=== PATIENT | male | born 1990 | race African-American/Black ===

== ENCOUNTER 2016-12-25 15:28 | Emergency (ER) | payer SELFPAY ==
--- NOTE | 2016-12-25 15:46 | ED ---
Extremity Problem HPI - General Stated complaint: Hand Pain/ Injury Time Seen by Provider: 12/25/16 15:30 Source: RN notes reviewed - History of Present Illness Initial comments: 26 yo male presents to the Er with cc of right hand pain. Patient states he was wrestling and he hurt his right hand. Patient states pain over the outside of the hand. Patient states this happened 2 days ago. Due to the fact they continued to hurt he thought that he should be seen. Patient states pain is moderate worsening movement. Patient denies any other injury from the incident. Patient denies any recent fever, chills, shortness of breath, chest pain, back pain, abdominal pain, nausea vomiting, numbness or tingling, dysuria or hematuria, constipation or diarrhea, headaches or visual changes, or any other current symptoms. - Related Data Home Medications Medication Instructions Recorded Confirmed No Known Home Medications [No 12/25/16 12/25/16 Known Home Medications] Allergies Allergy/AdvReac Type Severity Reaction Status Date / Time No Known Allergies Allergy Verified 12/25/16 15:44 Review of Systems ROS Statement: Those systems with pertinent positive or pertinent negative responses have been documented in the HPI. ROS Other: All systems not noted in ROS Statement are negative. Past Medical History Past Medical History: Asthma History of Any Multi-Drug Resistant Organisms: None Reported Past Surgical History: Adenoidectomy, Ear Surgery, Hernia Repair Additional Past Surgical History / Comment(s): ear tubes Past Psychological History: No Psychological Hx Reported Smoking Status: Current every day smoker Past Alcohol Use History: Occasional Past Drug Use History: Marijuana General Exam - General Exam Comments Initial Comments: General: The patient is awake and alert, in no distress, and does not appear acutely ill. Neck: The neck is supple, there is no tenderness. Cardiovascular: There is a regular rate and rhythm. No murmur, rub or gallop is appreciated. Respiratory: Lungs are clear to auscultation, respirations are non-labored, breath sounds are equal. No wheezes, stridor, rales, or rhonchi. Musculoskeletal: Sensation intact with 2+ pulses. Extremity. Full range of motion of right wrist. Patient's friend was on the right hand with some pain along the fourth and fifth metatarsal carpals. No tenderness at the anatomical snuffbox. Full range of motion of all digits. Neurological: CN II-XII intact, There are no obvious motor or sensory deficits. Coordination appears grossly intact. Speech is normal. Skin: Skin is warm and dry and no rashes or lesions are noted. Psychiatric: Normal mood and affect. Course Vital Signs 12/25/16 15:34 Temperature 98.4 F Pulse Rate 78 Respiratory 20 Rate Blood Pressure 128/68 O2 Sat by Pulse 97 Oximetry Medical Decision Making - Medical Decision Making 20 60 male presents for right hand pain. This time he appears to have a sprain. We discussed ice Motrin Tylenol. We discussed return parameters and follow-up. Patient's family's questions. They state Cirilo and agree with the plan. They will be discharged home. - Radiology Data Radiology results: report reviewed, image reviewed Disposition Clinical Impression: Strain of right hand Disposition: HOME SELF-CARE Condition: Stable Instructions: Hand Sprain (ED) Additional Instructions: Please use medication as discussed. Please follow up with family doctor if symptoms have not improved over the next two days. Please return to the emergency room if your symptoms increase or worsen or for any other concerns. Referrals: Edith Barakat MD [Primary Care Provider] - 1-2 days Time of Disposition: 16:22
[2016-12-25 15:47] VITALS: BP 128/68; PULSE 78; RESP 20; TEMP 98.4
--- NOTE | 2016-12-25 16:20 | XR ---
Right hand HISTORY: Right hand pain 3 views of the right hand No comparisons Bone mineralization, joint spaces and alignment are maintained IMPRESSION: No fracture or dislocation.
== END 2016-12-25 16:26 | disposition home or self-care (01) ==
LOC: EC 15:28
DX: S66.911A Strain of unspecified muscle, fascia and tendon at wrist and hand level, right hand, initial encounter (principal); F17.200 Nicotine dependence, unspecified, uncomplicated; X58.XXXA Exposure to other specified factors, initial encounter; Y93.72 Activity, wrestling
CPT/HCPCS: 99283

== ENCOUNTER → 2019-01-16 | Outpatient (CLI) | payer OTHER ==
--- NOTE | 2019-01-16 11:59 | MR ---
EXAMINATION TYPE: MR brain wo/w con DATE OF EXAM: 01/16/2019 COMPARISON: None HISTORY: Left side hearing loss TECHNIQUE: Multiplanar, multisequence images of the brain and brainstem is performed without and with IV contras t, utilizing 6.5 mL intravenous Gadavist . FINDINGS: Diffusion weighted images demonstrate no evidence of a recent infarct or other diffusion ab normality. There is no extra-axial fluid collection. Punctate focus of increased signal on inversion recovery and T2-weighted sequences in the right frontal white matter on axial image 15 is of questio nable clinical significance The ventricular system and cisternal spaces are normal in size and appea daryl. The brain volume is age appropriate. Midline structures demonstrate normal morphology. The craniocervical junction appears within normal limits. Post contrast images demonstrate no abnormal enhancement. The dural venous sinuses appear pa tent. The visualized sinuses are clear and the globes are intact. IMPRESSION: Nonspecific white matter signal change questionable clinical significance. No other signi ficant abnormality is evident.
== END | disposition home or self-care (01) ==
LOC: RADMRIMAIN 09:59
PROVIDERS: ATTEND Family Medicine
DX: R51 Headache (principal)
CPT/HCPCS: 70553; A9585

== ENCOUNTER → 2019-01-17 | Outpatient (CLI) | payer OTHER ==
--- NOTE | 2019-01-17 13:21 | EEG ---
ELECTROENCEPHALOGRAM REPORT PROCEDURE DATE: 01/17/2019 ELECTROENCEPHALOGRAM (EEG) REPORT: TECHNIQUE: A routine 18 channel EEG was performed with video using the 10-20 international placement system. HISTORY: Syncopal episodes, June 06 and July 08. OTHER MEDICAL HISTORY: Other medical history includes headaches. CURRENT MEDICATIONS: None. STUDY DURATION: 26 minutes. FINDINGS: BACKGROUND: The background activity consisted of 9-10 hertz rhythmic waveforms symmetrically distributed over both posterior quadrants. ACTIVATION: Hyperventilation: Not performed. Photic stimulation: Symmetric driving seen. Sleep: Stages I and II sleep noted. ABNORMALITIES: None. Please note that 1 channel of this EEG was dedicated to EKG. It demonstrated a sinus rhythm. IMPRESSION: Normal EEG. No epileptiform activity was present. No seizures were recorded. MMODL / IJN: [id number] /
== END ==
LOC: NEUROMAIN 10:12
PROVIDERS: ATTEND Family Medicine
DX: R55 Syncope and collapse (principal)
CPT/HCPCS: 93270; 95819

== ENCOUNTER 2019-09-22 18:54 | Emergency (ER) | payer OTHER ==
[2019-09-22 19:01] VITALS: TEMP 98.1
--- NOTE | 2019-09-22 19:23 | ED ---
Chest Pain HPI - General Chief Complaint: Chest Pain Stated Complaint: chest pain Time Seen by Provider: 09/22/19 19:08 Source: patient, RN notes reviewed, old records reviewed Mode of arrival: ambulatory Limitations: no limitations - History of Present Illness Initial Comments: This is a 28-year-old male to ER today he presents today for evaluation of chest pain left-sided chest pain sharp stabbing pains related to his back into his arm. He does have history of similar complaint but of lesser days been more frequent hanging up from sleep and when he would describe as worse than normal. No modifying factors for pain complainingof shortness of breath with activity and some sweating at night. Patient does smoke but no other medical history, patient has no high blood pressure high cholesterol or diabetes, no strong family history of heart disease MD Complaint: chest pain -: days(s) (3) Onset: during rest, awoke with symptoms Pain Location: left chest Pain Radiation: LUE Severity: moderate Severity scale (1-10): 4 Quality: sharp Consistency: intermittent Improves With: nothing Worsens With: nothing Anginal Symptoms: diaphoresis, dyspnea Other Symptoms: cough Treatments Prior to Arrival: none - Related Data Home Medications Medication Instructions Recorded Confirmed Magnesium 200 mg PO DAILY 09/22/19 09/22/19 Allergies Allergy/AdvReac Type Severity Reaction Status Date / Time No Known Allergies Allergy Verified 09/22/19 20:05 Review of Systems ROS Statement: Those systems with pertinent positive or pertinent negative responses have been documented in the HPI. ROS Other: All systems not noted in ROS Statement are negative. EKG Findings - EKG Comments: EKG Findings:: EKG shows sinus rhythm rate of 92, NH 170, QRS 04, QTc 415 Past Medical History Past Medical History: Asthma, Syncope History of Any Multi-Drug Resistant Organisms: None Reported Past Surgical History: Adenoidectomy, Ear Surgery, Hernia Repair Additional Past Surgical History / Comment(s): ear tubes Past Anesthesia/Blood Transfusion Reactions: No Reported Reaction Past Psychological History: No Psychological Hx Reported Smoking Status: Current every day smoker Past Alcohol Use History: Occasional Past Drug Use History: Marijuana - Past Family History Mother Family Medical History: No Reported History General Exam Limitations: no limitations General appearance: alert, in no apparent distress Head exam: Present: atraumatic, normocephalic, normal inspection Eye exam: Present: normal appearance, PERRL, EOMI. Absent: scleral icterus, conjunctival injection, periorbital swelling ENT exam: Present: normal exam, mucous membranes moist Neck exam: Present: normal inspection. Absent: tenderness, meningismus, lymphadenopathy Respiratory exam: Present: normal lung sounds bilaterally. Absent: respiratory distress, wheezes, rales, rhonchi, stridor Cardiovascular Exam: Present: regular rate, normal rhythm, normal heart sounds. Absent: systolic murmur, diastolic murmur, rubs, gallop, clicks GI/Abdominal exam: Present: soft, normal bowel sounds. Absent: distended, tenderness, guarding, rebound, rigid Extremities exam: Present: normal inspection, full ROM, normal capillary refill. Absent: tenderness, pedal edema, joint swelling, calf tenderness Back exam: Present: normal inspection Neurological exam: Present: alert, oriented X3, CN II-XII intact Psychiatric exam: Present: normal affect, normal mood Skin exam: Present: warm, dry, intact, normal color. Absent: rash Course Vital Signs 09/22/19 09/22/19 09/22/19 18:56 19:01 20:00 Temperature 98.1 F Pulse Rate 88 73 Pulse Rate [ 86 Hand Bander ] Respiratory 19 18 18 Rate Blood Pressure 119/79 108/74 O2 Sat by Pulse 100 99 Oximetry 09/22/19 09/22/19 09/22/19 20:47 22:00 23:00 Temperature Pulse Rate 80 57 L 61 Pulse Rate [ Hand Bander ] Respiratory 18 17 17 Rate Blood Pressure 124/77 118/70 111/68 O2 Sat by Pulse 99 100 100 Oximetry - Reevaluation(s) Reevaluation #1: 09/22/19 19:22 Medical record review with history of syncope Reevaluation #2: 09/23/19 00:02 Patient is troponin checked 2 first one nonsignificantly clinically elevated, second one lower the first spoke with Dr. Camara who agrees follow-up in the office spoke with patient was also be a without patient follow-up currently without chest pain or any other new complaints Chest Pain MDM - MDM Review male here with not severe chest pain chest pain at night waking her from sleep relays down. Patient is a symptomatic to ER stay the patient deny t roponin negative 2 chest x-ray otherwise negative the patient can be discharged home Disposition Clinical Impression: Atypical chest pain, Chest pain Disposition: HOME SELF-CARE Condition: Good Instructions (If sedation given, give patient instructions): Chest Pain (ED) Is patient prescribed a controlled substance at d/c from ED?: No Referrals: Edith Barakat MD [Primary Care Provider] - 1-2 days
[2019-09-22 19:53] LABS: Basophils # (A) 0.2 k/uL (0-0.2); Basophils % (A) 3 %; Eosinophils # (A) 0.1 k/uL (0-0.7); Eosinophils % (A) 2 %; HCT 43.1 % (39.0-53.0); HGB 14.9 gm/dL (13.0-17.5); Lymphocytes # (A) 0.5 k/uL (1.0-4.8); Lymphocytes % (A) 8 %; MCH 32.8 pg (25.0-35.0); MCHC 34.5 g/dL (31.0-37.0); MCV 94.8 fL (80.0-100.0); Mean Platelet Volume 10.1; Monocytes # (A) 0.5 k/uL (0-1.0); Monocytes % (A) 8 %; Neutrophils % (A) 78 %; Platelet Count 141 k/uL (150-450); RBC 4.54 m/uL (4.30-5.90); RDW 12.6 % (11.5-15.5); WBC 6.4 k/uL (3.8-10.6)
--- NOTE | 2019-09-22 19:59 | XR ---
EXAMINATION TYPE: XR chest 2V DATE OF EXAM: 09/22/2019 COMPARISON: NONE HISTORY: Chest pain TECHNIQUE: FINDINGS: Heart and mediastinum are normal. Lungs are clear. Diaphragm is normal. Bony thorax appears normal. IMPRESSION: Normal chest.
[2019-09-22 20:03] LABS: ALT 15 U/L (4-49); AST 28 U/L (17-59); African American GFR (CKD) >90 (>60 ml/min/1.73 sqM); Albumin 4.8 g/dL (3.5-5.0); Alkaline Phosphatase 60 U/L (38-126); Anion Gap 7 mmol/L; Blood Urea Nitrogen 9 mg/dL (9-20); Calcium 9.9 mg/dL (8.4-10.2); Carbon Dioxide 30 mmol/L (22-30); Chloride 103 mmol/L (98-107); Glucose 78 mg/dL (74-99); Magnesium 1.8 mg/dL (1.6-2.3); Non-African American GFR(CKD) >90 (>60 ml/min/1.73 sqM); Potassium 4.2 mmol/L (3.5-5.1); Sodium 140 mmol/L (137-145); Total Bilirubin 1.1 mg/dL (0.2-1.3); Total Protein 7.8 g/dL (6.3-8.2)
[2019-09-22 20:10] LABS: D-Dimer <0.17 mg/L FEU (<0.60); INR 1.1 (<1.2); Partial Thromboplastin Time 28.1 sec (22.0-30.0); Prothrombin Time 11.2 sec (9.0-12.0)
[2019-09-22] MEDS ORDERED: KETOROLAC 30 MG/ML 1 ML VIAL IVP STA (20:48)
[2019-09-22] MEDS ORDERED: SODIUM CHLORIDE 0.9% 1,000 ML IV ONE (20:54)
[2019-09-23 00:11] VITALS: BP 111/63; PULSE 68; RESP 16
== END 2019-09-23 00:11 | disposition home or self-care (01) ==
LOC: EC 18:54
DX: R07.89 Other chest pain (principal); R55 Syncope and collapse; F17.200 Nicotine dependence, unspecified, uncomplicated; Z79.899 Other long term (current) drug therapy
CPT/HCPCS: 36415; 93005; 85379; 83880; 80053; 83690; 83735; 84484; 85025; 85610; 85730; 71046; 99285; 96374; 96361; J1885

== ENCOUNTER → 2019-10-06 | Outpatient (CLI) | payer OTHER ==
--- NOTE | 2019-10-06 11:29 | ECHOS ---
STRESS ECHOCARDIOGRAM INDICATIONS: Chest pain. BASELINE HEART RATE: 65 BASELINE BLOOD PRESSURE: 108/58 MAXIMUM HEART RATE: 178 MAXIMUM BLOOD PRESSURE: 199/90 85% MPHR: 163 100% MPHR: 192 METS: 12.1 MAXIMUM STAGE REACHED: 4 TOTAL EXERCISE TIME: 12:00 CLINICAL INFORMATION: Patient complained of chest pain, midline. Baseline heart rate 65 beats per minute. Baseline blood pressure 108/58 mmHg. Baseline 12-lead ECG shows normal sinus rhythm with normal cardiac intervals. Patient exercised on a Kurt protocol for 12 minutes quite comfortably and achieved a peak heart rate of 178 beats per minute. Normal blood pressure response to exercise. There was no ECG evidence for ischemia. No arrhythmias were noted. Baseline 2D echo images showed normal LV size and systolic function without segmental wall motion abnormalities. At peak exercise, there was excellent augmentation of overall LV contractility without developing any wall motion abnormalities. At recovery, regional global LV systolic function remained normal. IMPRESSION: 1. No ECG or echocardiographic evidence for ischemia. 2. Excellent exercise capacity. MMODL / IJN: [id number] /
== END | disposition home or self-care (01) ==
LOC: RADNMMAIN 09:29
PROVIDERS: ATTEND Family Medicine
DX: R94.30 Abnormal result of cardiovascular function study, unspecified (principal)
CPT/HCPCS: 93351

== ENCOUNTER → 2019-10-31 | Outpatient (CLI) | payer OTHER ==
--- NOTE | 2019-10-31 10:25 | CT ---
EXAMINATION TYPE: CT chest w con DATE OF EXAM: 10/31/2019 COMPARISON: Chest x-ray 09/22/2019 HISTORY: Chest pains X 6 months-intermittent CT DLP: 170.3 mGycm Automated exposure control for dose reduction was used. CONTRAST: CT scan of the chest is performed without and with IV Contrast, patient injected with 100 mL of Isovu e 300. FINDINGS: LUNGS: The lungs are grossly clear, there is no concerning parenchymal mass or nodule identified, sma ll subpleural oval nodular density in axial image 47 measures only 4 mm, soft tissue nodule in the flaherty bpleural axial image #39 measures 4 to 5 mm with smooth margins and is noncalcified and are likely be nign in the right lower lobe. There is no pleural effusion or pneumothorax seen. The tracheobronch ial tree is patent. MEDIASTINUM: There are no greater than 1 cm hilar or mediastinal lymph nodes. No pericardial effusi on is seen. AORTA: No additional significant abnormality is seen. 3 super aortic branch vessels are present. OTHER: There is a thoracic spinal curvature as noted on plain film. IMPRESSION: Indeterminate pulmonary nodules may be entry level sales representative of granulomatous disease, felt lik matthias to be benign. Mild spinal curvature.
== END | disposition home or self-care (01) ==
LOC: RADCTMAIN 09:17
PROVIDERS: ATTEND Family Medicine
DX: R07.9 Chest pain, unspecified (principal)
CPT/HCPCS: 71260; Q9967

== ENCOUNTER 2022-08-21 04:30 | Emergency (ER) | payer OTHER ==
[2022-08-21 04:43] VITALS: BP 124/80; PULSE 79; RESP 18; TEMP 98.8
--- NOTE | 2022-08-21 05:07 | XR ---
EXAMINATION TYPE: XR chest 2V DATE OF EXAM: 08/21/2022 COMPARISON: 09/22/2019 HISTORY: Abnormal breath TECHNIQUE: 2 views FINDINGS: Heart and mediastinum are normal. Lungs are clear. Diaphragm is normal. Bony thorax appears normal. IMPRESSION: Normal chest. No change.
--- NOTE | 2022-08-21 05:15 | ED ---
URI HPI - General Chief Complaint: Upper Respiratory Infection Stated Complaint: Headache, Cough, Chest Pain Time Seen by Provider: 08/21/22 05:04 Source: patient, RN notes reviewed, old records reviewed Mode of arrival: ambulatory Limitations: no limitations - History of Present Illness Initial Comments: This is a 31-year-old male to the emergency department for evaluation no medical history comes in for cough congestion upper Estrace infection resume have influenza or coronavirus. No fevers. No chest pain. No other complaints MD Complaint: fever, cough, sore throat, rhinorrhea, nasal congestion -: days(s) (6) Severity: mild Severity scale (1-10): 4 Quality: dull Consistency: intermittent Improves With: nothing Worsens With: nothing Context: sick contacts Associated Symptoms: fever, myalgias, cough Treatments Prior to Arrival: none - Related Data Home Medications Medication Instructions Recorded Confirmed Magnesium 200 mg PO DAILY 09/22/19 09/22/19 Previous Rx's Medication Instructions Recorded Azithromycin [Zithromax] 500 mg PO DAILY #5 tab 08/21/22 Allergies Allergy/AdvReac Type Severity Reaction Status Date / Time No Known Allergies Allergy Verified 08/21/22 04:43 Review of Systems ROS Statement: Those systems with pertinent positive or pertinent negative responses have been documented in the HPI. ROS Other: All systems not noted in ROS Statement are negative. Past Medical History Past Medical History: Asthma, Syncope History of Any Multi-Drug Resistant Organisms: None Reported Past Surgical History: Adenoidectomy, Ear Surgery, Hernia Repair Additional Past Surgical History / Comment(s): ear tubes Past Anesthesia/Blood Transfusion Reactions: No Reported Reaction Past Psychological History: No Psychological Hx Reported Smoking Status: Current some day smoker Past Alcohol Use History: Occasional Past Drug Use History: Marijuana - Past Family History Mother Family Medical History: No Reported History General Exam General appearance: alert, in no apparent distress Head exam: Present: atraumatic, normocephalic, normal inspection Eye exam: Present: normal appearance, PERRL, EOMI. Absent: scleral icterus, conjunctival injection, periorbital swelling ENT exam: Present: normal exam, mucous membranes moist Neck exam: Present: normal inspection. Absent: tenderness, meningismus, lymphadenopathy Respiratory exam: Present: normal lung sounds bilaterally. Absent: respiratory distress, wheezes, rales, rhonchi, stridor Cardiovascular Exam: Present: regular rate, normal rhythm, normal heart sounds. Absent: systolic murmur, diastolic murmur, rubs, gallop, clicks GI/Abdominal exam: Present: soft, normal bowel sounds. Absent: distended, tenderness, guarding, rebound, rigid Extremities exam: Present: normal inspection, full ROM, normal capillary refill. Absent: tenderness, pedal edema, joint swelling, calf tenderness Back exam: Present: normal inspection Neurological exam: Present: alert, oriented X3, CN II-XII intact Psychiatric exam: Present: normal affect, normal mood Skin exam: Present: warm, dry, intact, normal color. Absent: rash Course Vital Signs 08/21/22 04:40 Temperature 98.8 F Pulse Rate 79 Respiratory 18 Rate Blood Pressure 124/80 O2 Sat by Pulse 98 Oximetry - Reevaluation(s) Reevaluation #1: 08/21/22 Medical record is reviewed Reevaluation #2: 08/21/22 patient informed results and questions answered Reevaluation #3: 08/21/22 Patient feels well Reevaluation #4: 08/21/22 05:53 Differential Dyspnea: Coronary syndrome, arrhythmia, tamponade, asthma, COPD, pulmonary embolism, pneumonia, pneumothorax, pulmonary effusion, anaphylaxis, diabetic ketoacidosis, flailed chest, pulmonary contusion, diaphragmatic rupture, anemia, neuromuscular, this is not meant to be an all-inclusive list. Reevaluation #5: 08/21/22 05:52 Was pt. sent in by a medical professional or institution? @ -non Did you speak to anyone other than the patient for history? @ o] Did you review nursing and triage notes? @ -agree Were old charts reviewed? @ -no Differential Diagnosis? @ -no EKG interpreted by me (3pts min.)? @ -[none] X-rays interpreted by me (1pt min.)? @ -yes CT interpreted by me (1pt min.)? @ -[none] U/S interpreted by me (1pt. min.)? @ -[none] What testing was considered but not performed? (CT, X-rays, U/S, labs)? Why? @ no What meds were considered but not given? Why? @ -[none] Did you discuss the management of the patient with other professionals? @ -no Did you reconcile home meds? @ -[none] Was smoking cessation discussed for >3mins.? @ -[none] Was critical care preformed (if so, how long)? @ -[none] Were there social determinants of health that impacted care today? How? (Homelessness, low income, unemployed, alcoholism, drug addiction, transportation, low edu. Level, literacy, decrease access to med. care, [facility], rehab)? @ -no Was there de-escalation of care discussed even if they declined? (Discuss DNR or withdrawal of care, Hospice)? @ -no What co-morbidities impacted this encounter? (DM, HTN, Smoking, COPD, CAD, Cancer, CVA, Hep., AIDS, mental health diagnosis, sleep apnea, morbid obesity)? @ -no Was patient admitted / discharged? @ -dc Undiagnosed new problem with uncertain prognosis? @ -[none] Drug Therapy requiring intensive monitoring for toxicity (Heparin, Nitro, Insulin, Cardizem)? @ -[none] Were any procedures done? @ -[none] Diagnosis/symptom? @ -[default] Acute, or Chronic, or Acute on Chronic? @ -[default] Uncomplicated (without systemic symptoms) or Complicated (systemic symptoms)? @ -[default] Side effects of treatment? @ -[none] Exacerbation, Progression, or Severe Exacerbation] @ -[no] Poses a threat to life or bodily function? @ -[no] 08/30/22 03:08 Medical Decision Making - Medical Decision Making 31 male to the emergency department for evaluation of upper respiratory symptoms. Testing is negative here in the ER. Patient can be discharged home - Lab Data Lab Results 08/21/22 Range/Units 04:50 Influenza Type A (PCR) Not Detected (Not Detectd) Influenza Type B (PCR) Not Detected (Not Detectd) RSV (PCR) Not Detected (Not Detectd) SARS-CoV-2 (PCR) Not Detected (Not Detectd) - Radiology Data Radiology results: report reviewed (Chest x-rays negative for acute disease), image reviewed Disposition Clinical Impression: Acute upper respiratory infection Disposition: HOME SELF-CARE Condition: Good Instructions (If sedation given, give patient instructions): Upper Respiratory Infection (ED) Prescriptions: Azithromycin [Zithromax] 500 mg PO DAILY #5 tab Is patient prescribed a controlled substance at d/c from ED?: No Referrals: Edith Barakat MD [Primary Care Provider] - 1-2 days Time of Disposition: 05:55
[2022-08-21] MEDS ORDERED: AZITHROMYCIN 500 MG TAB PO STA (05:51)
[2022-08-21] MEDS ORDERED: IBUPROFEN 800 MG TAB PO STA (05:51)
[2022-08-21] MEDS ORDERED: ACETAMINOPHEN TAB 500 MG TAB PO STA (05:51)
== END 2022-08-21 06:23 | disposition home or self-care (01) ==
LOC: EC 04:30
DX: J06.9 Acute upper respiratory infection, unspecified (principal); J45.909 Unspecified asthma, uncomplicated; F17.200 Nicotine dependence, unspecified, uncomplicated; F12.90 Cannabis use, unspecified, uncomplicated; Z20.822 Contact with and (suspected) exposure to COVID-19
CPT/HCPCS: 71046; 87636; 99284

== ENCOUNTER 2024-01-07 11:23 | Emergency (ER) | payer OTHER ==
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
[2024-01-07 13:22] VITALS: BP 123/83; PULSE 65; RESP 18; TEMP 98.3
== END 2024-01-07 14:09 | disposition home or self-care (01) ==
LOC: EC 11:23
DX: S00.33XA Contusion of nose, initial encounter (principal); S02.5XXA Fracture of tooth (traumatic), initial encounter for closed fracture; F17.200 Nicotine dependence, unspecified, uncomplicated; F12.90 Cannabis use, unspecified, uncomplicated; W22.8XXA Striking against or struck by other objects, initial encounter
CPT/HCPCS: 70450; 70486; 99283